=== PATIENT | female | born 1980 | race Two or more races ===

== ENCOUNTER 2019-06-13 01:39 | Emergency (ER) | payer BC ==
[~2019-06-13] VITALS: Ht 157.5 cm; Wt 72.6 kg
[2019-06-13 03:24] VITALS: BP 126/84
[2019-06-13] MEDS ORDERED: AMMONIA 0.33 ML INHALANT IN ONE (13:26)
== END 2019-06-13 04:47 | disposition left against medical advice (07) ==
LOC: ER 01:42
DX: K08.89 Other specified disorders of teeth and supporting structures (principal); Z53.21 Procedure and treatment not carried out due to patient leaving prior to being seen by health care provider

== ENCOUNTER 2019-06-13 05:20 | Emergency (ER) | payer BC ==
[~2019-06-13] VITALS: Ht 157.5 cm; Wt 70.9 kg
[2019-06-13 05:24] VITALS: BP 135/86
[2019-06-13] MEDS ORDERED: KETOROLAC TROMETH 60MG/2ML VIAL IM ONE (06:15)
[2019-06-13] MEDS ORDERED: cefTRIAXone SOD 1,000 MG VL IM ONE (06:15)
== END 2019-06-13 06:30 | disposition home or self-care (01) ==
LOC: ER 05:20
DX: K08.89 Other specified disorders of teeth and supporting structures (principal); H60.91 Unspecified otitis externa, right ear; F17.210 Nicotine dependence, cigarettes, uncomplicated; F12.10 Cannabis abuse, uncomplicated; Z88.0 Allergy status to penicillin